=== PATIENT | male | born 1995 | race Caucasian/White ===

== ENCOUNTER 2019-04-22 23:07 | Emergency (ER) | payer BC ==
[~2019-04-22] VITALS: Ht 172.7 cm; Wt 127.3 kg
[2019-04-22 23:07] VITALS: BP 137/89
[2019-04-22] MEDS ORDERED: AUGM875T28 PO (23:10)
[2019-04-22] MEDS ORDERED: CIPRODEX OTIC (23:10)
[2019-04-23] MEDS ORDERED: KETOROLAC 60 MG/2 ML VIAL (J1885) IM ONE (01:15)
[2019-04-23] MEDS ORDERED: KETO10TAB PO (01:27)
== END 2019-04-23 01:52 | disposition home or self-care (01) ==
LOC: M ED 23:07
DX: H72.91 Unspecified perforation of tympanic membrane, right ear (principal); H66.92 Otitis media, unspecified, left ear